=== PATIENT | female | born 1990 | race Hispanic/Latino ===

== ENCOUNTER 2024-08-15 19:27 | Emergency (ER) | payer BC, SELFPAY ==
--- NOTE | ~2024-08-15 | XR_ITS ---
EXAMINATION: XR chest 2V Exam Date/Time: 08/15/2024 20:00 VAN HELPER HISTORY: chest pressure Comparison: None. RESULT: Lines, tubes, and devices: None. Lungs and pleura: Somewhat low volumes with crowding, otherwise clear. Cardiomediastinal silhouette: Normal. Other: No acute osseous or upper abdominal finding. IMPRESSION: No acute cardiopulmonary process. Reviewed, dictated and finalized at location K. HELPER
[2024-08-15 19:33] VITALS: BP 128/78; PULSE 82; RESP 17; TEMP 36.2; O2SAT 100
--- NOTE | 2024-08-15 19:47 | ECG_ITS ---
Test Date: 2024-08-15 19:56:05 Measurements Intervals [place] Rate: 71 P: -6 WV: 133 QRS: 58 QRSD: 96 T: 40 QT: 377 QTc: 412 Interpretive Statements SINUS RHYTHM EARLY PRECORDIAL R/S TRANSITION BASELINE ARTIFACT- I, II, III, AVR BORDERLINE ECG No previous ECG available for comparison Electronically Signed On 08-16-2024 06:15:52 COSMETOLOGY TEACHER by Reed Padgett D.O.
[2024-08-15 19:59] LABS: Basophils Absolute Auto 0.1 K/mm3 (0.0-0.1); Basophils Percent Auto 0.6 % (0.2-1.2); Eosinophils Absolute Auto 0.8 K/mm3 (0-0.3); Eosinophils Percent Auto 7.3 % (0-4.4); Hemoglobin 13.7 g/dL (12.0-15.0); Immature Granulocyte Absolute 0.02 K/mm3 (0.00-0.031); Immature Granulocyte Percent A 0.2 % (0-0.5); Lymphocytes Percent Auto 30.5 % (18.3-44.2); Mean Corpuscular HGB Conc 34.3 g/dl (32-36); Mean Corpuscular Hemoglobin 31.5 pg (26-34); Mean Platelet Volume 10.6 fl (7.4-10.4); Monocytes Absolute Auto 0.6 K/mm3 (0.1-0.6); Monocytes Percent Auto 5.2 % (2.6-8.5); Neutrophils Absolute Auto 5.9 K/mm3 (1.3-6.7); Neutrophils Percent Auto 56.2 % (45.5-73.1); Platelet Count Result 306 k/mm3 (150-375); Red Blood Count 4.35 M/mm3 (4.2-5.4); Red Cell Distribution Width 12.7 % (11.5-14.5); White Blood Count 10.5 K/mm3 (4.5-10.0)
[2024-08-15 20:10] LABS: Alanine Aminotransferase 26 U/L (6-35); Albumin Level 4.7 g/dL (3.5-5.1); Alkaline Phosphatase 94 U/L (38-126); Anion Gap 8 mmol/L (4-12); Aspartate Amino Transferase 25 U/L (14-36); Bilirubin,Total 0.4 mg/dL (0.2-1.3); Blood Urea Nitrogen 12 mg/dL (7-17); Calcium 9.8 mg/dL (8.4-10.2); Carbon Dioxide 24 mmol/L (22-30); Chloride 107 mmol/L (98-107); Estimated Glomerular Filt Rate > 60; Glucose 95 mg/dL (65-110); Lipase 80 U/L (23-300); Potassium 3.9 mmol/L (3.4-5.0); Sodium 139 mmol/L (137-145)
[2024-08-15 20:15] LABS: INR 1.1; Prothrombin Time 14.1 Seconds (11.1-14.7)
[2024-08-15 20:16] LABS: Partial Thromboplastin Time 27.4 Seconds (22.3-36.8)
[2024-08-15 20:21] LABS: Troponin I < 0.012 ng/mL (0.000-0.034)
--- NOTE | 2024-08-15 22:53 | ECG_ITS ---
Test Date: 2024-08-15 22:55:09 Measurements Intervals [place] Rate: 73 P: 41 NV: 144 QRS: 62 QRSD: 87 T: 47 QT: 394 QTc: 436 Interpretive Statements SINUS RHYTHM WITH SINUS ARRHYTHMIA EARLY PRECORDIAL R/S TRANSITION MINIMAL Q WAVES- ANTEROLAT/INF LEADS BORDERLINE ECG Compared to ECG 08/15/2024 19:56:05 No significant changes Electronically Signed On 08-16-2024 06:18:33 IT INFRASTRUCTURE CONSULTANT by Reed Padgett D.O.
[2024-08-15 23:22] LABS: Troponin I < 0.012 ng/mL (0.000-0.034)
[2024-08-15 23:23] VITALS: BP 133/93; PULSE 75; PULSE 79; RESP 16; TEMP 36.7; O2SAT 100
[2024-08-15 23:24] VITALS: O2SAT 100
--- NOTE | 2024-08-16 00:22 | ED_ITS ---
HPI - General Adult General Chief complaint: Chest Pain Stated complaint: chest pressure Time Seen by Provider: 08/15/24 23:18 History of Present Illness HPI narrative: Patient 34-year-old female presents emergency department chief complaint of chest pain. Patient reports over the last several days she has had pain in her chest patient reports the pain is a pressure-like sensation the patient denies shortness of breath reports pain is worse with inspiration. The patient incidentally also reports she has had pain in her right leg for years after she had foot. Related Data Allergies Allergy/AdvReac Type Severity Reaction Status Date / Time No Known Allergies Allergy Verified 08/15/24 19:29 Review of Systems Review of Systems: A 10 system review of systems was completed on the patient and is negative except for what is stated in the HPI. Nursing and ancillary documentation was reviewed. Exam Narrative: GENERAL: Well-appearing, well-nourished, and in no acute distress. HEAD: Normocephalic, atraumatic. EYES: PERRLA and EOMI. ENT: Nares clear, no rhinorrhea or epistaxis. Mucous membranes moist. NECK: Supple. CHEST: Clear to auscultation. No respiratory distress. Chest wall is tender to palpation on the right sternal border HEART: Regular rate and rhythm. No murmur heard. Normal peripheral pulses. ABDOMEN: Soft, nontender, nondistended, normal active bowel sounds. EXTREMITIES: Normal range of motion. No edema. SKIN: Warm, dry, no rash. NEURO: No focal deficits. Alert and oriented x3. PSYCH: Normal mood and affect. Course Vital Signs Vital signs: Vital Signs Temperature 36.2 C L 08/15/24 19:33 Pulse Rate 82 08/15/24 19:33 Respiratory Rate 17 08/15/24 19:33 Blood Pressure 128/78 08/15/24 19:33 Pulse Oximetry 100 08/15/24 19:33 Temperature 36.7 C 08/15/24 23:23 Pulse Rate 75 08/15/24 23:23 Respiratory Rate 16 08/15/24 23:23 Blood Pressure 133/93 H 08/15/24 23:23 Pulse Oximetry 100 08/15/24 23:24 Oxygen Delivery Room Air 08/15/24 23:24 Medical Decision Making [facility] [place] Narrative Medical decision making narrative: Differential diagnosis includes ACS, chest wall pain, DVT The patient is not showing signs of pulmonary embolism at this time Chest wall is tender to palpation EKG showed no acute ischemic changes 0 hour 3 hour troponin were negative Vital Signs Vital Signs: Vital Signs Temperature 36.2 C L 08/15/24 19:33 Pulse Rate 82 08/15/24 19:33 Respiratory Rate 17 08/15/24 19:33 Blood Pressure 128/78 08/15/24 19:33 Pulse Oximetry 100 08/15/24 19:33 Temperature 36.7 C 08/15/24 23:23 Pulse Rate 75 08/15/24 23:23 Respiratory Rate 16 08/15/24 23:23 Blood Pressure 133/93 H 08/15/24 23:23 Pulse Oximetry 100 08/15/24 23:24 Oxygen Delivery Room Air 08/15/24 23:24 Lab Data 08/15/24 19:49 08/15/24 19:49 Labs: Lab Results 08/15/24 08/15/24 Range/Units 19:49 22:50 WBC 10.5 H (4.5-10.0) K/mm3 RBC 4.35 (4.2-5.4) M/mm3 Hgb 13.7 (12.0-15.0) g/dL Hct 40.0 (37.0-47.0) % MCV 92.0 (80-100) fl MCH 31.5 (26-34) pg MCHC 34.3 (32-36) g/dl RDW 12.7 (11.5-14.5) % Plt Count 306 (150-375) k/mm3 MPV 10.6 H (7.4-10.4) fl Immature Gran % (Auto) 0.2 (0-0.5) % Neut % (Auto) 56.2 (45.5-73.1) % Lymph % (Auto) 30.5 (18.3-44.2) % [place] % (Auto) 5.2 (2.6-8.5) % Eos % (Auto) 7.3 H (0-4.4) % Baso % (Auto) 0.6 (0.2-1.2) % Lymph # (Auto) 3.20 (0.9-3.2) K/mm3 [place] # (Auto) 0.6 (0.1-0.6) K/mm3 Eos # (Auto) 0.8 H (0-0.3) K/mm3 Baso # (Auto) 0.1 (0.0-0.1) K/mm3 Abs Immat Gran (auto) 0.02 (0.00-0.031) K/mm3 Absolute Neuts (auto) 5.9 (1.3-6.7) K/mm3 Absolute Nucleated RBC 0.000 (0.0-0.012) K/mm3 Nucleated RBC % 0.0 (0.0-0.2) % PT 14.1 (11.1-14.7) Seconds INR 1.1 APTT 27.4 (22.3-36.8) Seconds Sodium 139 (137-145) mmol/L Potassium 3.9 (3.4-5.0) mmol/L Chloride 107 (98-107) mmol/L Carbon Dioxide 24 (22-30) mmol/L Anion Gap 8 (4-12) mmol/L BUN 12 (7-17) mg/dL Creatinine 0.70 (0.7-1.0) mg/dL Estim Creat Clear Calc Not Reportable Estimated GFR > 60 (59 - ) Glucose 95 (65-110) mg/dL Calcium 9.8 (8.4-10.2) mg/dL Total Bilirubin 0.4 (0.2-1.3) mg/dL AST 25 (14-36) U/L ALT 26 (6-35) U/L Alkaline Phosphatase 94 (38-126) U/L Troponin I < 0.012 < 0.012 (0.000-0.034) ng/mL Total Protein 8.0 (6.3-8.2) g/dL Albumin 4.7 (3.5-5.1) g/dL Lipase 80 (23-300) U/L Discharge Plan Discharge Clinical Impression: Anterior chest wall pain, Right leg pain Patient Disposition: Home, Self-Care Condition: Stable Instructions: Antibiotic Form, Chest Wall Pain (ED), Leg Pain (ED) Additional Instructions: Regrese al departamento de radiolog?a por la ma?sebastián al 645 para ray amena de ultrasonido para park pier[place] derecha a las 7:00 a. m. Patient Language: Estonian Prescriptions: New ibuprofen 800 mg tablet 800 mg PO TID PRN (Reason: pain) Qty: 30 0RF Follow-up/Referrals: PHYSICIAN,HYDRAULIC ROCKBREAKER OPERATOR [Primary Care Provider] - Destiny Boland DO [Physician] - Time of Disposition: 00:27
== END 2024-08-16 01:12 | disposition home or self-care (01) ==
PROVIDERS: Emergency Provider Emergency Medicine
DX: R07.89 Other chest pain (principal); M79.604 Pain in right leg; R94.31 Abnormal electrocardiogram [ECG] [EKG]
CPT/HCPCS: 36415; 71046; 80053; 83690; 84484; 85025; 85610; 85730; 93005; 99284

== ENCOUNTER 2024-10-20 11:06 | Emergency (ER) | payer BC, SELFPAY ==
--- NOTE | ~2024-10-20 | XR_ITS ---
EXAMINATION: XR chest 2V 10/20/2024 11:34 INDICATION: Left-sided chest pain PROCEDURE: 2 view chest COMPARISON: 08/15/2024 FINDINGS: The lungs are clear. The cardiomediastinal silhouette is within normal limits. There are no pleural effusions. There is no pneumothorax suspected. IMPRESSION: 1: NO ACUTE CARDIOPULMONARY DISEASE. Reviewed, dictated and finalized at location A. R GLASS WORKER
--- NOTE | 2024-10-20 11:09 | ECG_ITS ---
Test Date: 2024-10-20 11:12:23 Measurements Intervals [place] Rate: 77 P: -5 NH: 125 QRS: 59 QRSD: 90 T: 30 QT: 378 QTc: 429 Interpretive Statements SINUS RHYTHM Compared to ECG 08/15/2024 22:55:09 Sinus arrhythmia no longer present Electronically Signed On 10-20-2024 14:39:30 RUBBER MILL OPERATOR by Cathy Melvin M.D.
--- OUTSIDE RECORDS SUMMARY | 2024-10-20 11:09 | XMS_ITS | Clinical Summary ---
Author Organization [facility] Address [address] [place] [address] Care Team Providers Care Marketing Research Analyst Name Role Phone Unknown, Notinfile Primary Care Provider Unavail able Unknown, Notinfile Unavailable Unavailable Unknown, Notinfile Unavailable Unavailable Charity Shaikh MD Unavailable Allergies No known active allergies Medications acetaminophen 500 mg capsule Take 2 capsules (1,000 mg total) by mouth every 6 (six) hours as needed for pain 60 tablet 09/09/2023 Active ibuprofen (ADVIL,MOTRIN) 600 mg tabletIndicatio ns:Cramps Take 1 tablet (600 mg total) by mouth every 6 (six) hours as needed for pain 30 tablet 09/09/2023 Active polyethylene glycol (MIRALAX) 17 gram/dose bulk powderIndicatio ns:constipation Take 17 g by mouth daily 289 g 09/09/2023 Active Active Problems Problem Noted Date Diagnosed Date care following vaginal delivery 09/08 Overview (09/09/2023): # ID: Afebrile. No signs/symptoms of infection. #History of UTI: resolved s/p Macrobid # Heme: Admit Hgb 12.5. EBL 150 mL. Hemodynamically stable. # CV/Pulm: Vital signs stable, within normal limits. 2 MR <4 hrs apart, not meeting criteria for gHTN. # GI/: Tolerating PO. Voiding spontaneously. # Pain: Controlled with above regimen. # MOC: Desires nexplanon placement (ordered). # MOF: . Urine drug screen not indicated. Patient informed of results: N/A. # Post DVT prophylaxis: The patient has the following MAJOR risk factors none and the following MINOR risk factors BMI 30-39 and parity >/=3. enoxaparin 40 mg daily ordered for VTE prophylaxis. # Disposition: Follow up task not sent. Desires discharge home this evening. Vaginal delivery 05/01/2020 Overview (05/02/2020): # ID: Afebrile. No signs/symptoms of infection. #COVID-19: Admission test pending # Heme: EBL 150 mL. No symptoms acute blood loss anemia. # CV/Pulm: Gestational hypertension - Blood pressures normotensive to mild range controlled on no meds. Asymptomatic, denies BUCHANAN/RUQ pain/vision changes. CBC/CMP wnl, UPC not sent (patient ). Patient does not meet criteria for remote BP monitoring. # GI/: Tolerating PO. Voiding spontaneously. # Pain: Controlled with above regimen. # Post DVT prophylaxis: The patient has the following MAJOR risk factors none and the following MINOR risk factors none. SCDs ordered for VTE prophylaxis. # MOC: Depo-provera # MOF: Both formula and # Disposition: Desires discharge home today of unknown anatomic location 9 Overview (10/07/2018): [phone] Home Yes [] PUL Card Given Working Diagnosis: Ectopic, s/p MTX on 10/01 Date presented: 10/01/18 Brief HPI: 28 y.o. with LMP 07/28/18 (unsure) at unknown gestational age, seen at [facility] where US was unable to visualize an IUP and was advised to come to ED for evaluation Ultrasound: UT: 6.22 cm x 4.3 cm x 6.28 cm. Intrauterine gestational sac seen: no Gestational sac summary: Visualized within left adnexa (See below) Left adnexa: Ovary visualized: 2.67cm x 2.44cm x 2.3cm. Left Ectopic visualized measuring 1.68 x 1.46 x 1.83 cm; no fetus or cardiac activity. There is also a simple appearing cyst measuring 3.8 cm. Right adnexa: Ovary visualized: 2.34cm x 0.85cm x 2.74cm. No masses seen Fluid in Cul-de-sac: none Rh Status: O Positive [] Rhogam Given Beta Trend: Lab Results Component Value Date HCG 2,629.6 (H) 10/01/201810/03: called pt to remind her to have Bhcg drawn at [facility] on 10/04. Pt agreeable. 10/07: called pt to follow up after her [facility] apts. Pt confirmed she went to apts 10/04 and 10/07. Per pt, has apt 10/11. [facility] has assumed care. PLAN Next beta due: Will obtain D#4 beta quant on 10/04/18 and D#7 on 10/07/18 - to be done at [facility] Contraception: Undecided. Patient to discuss with [facility] OBGYN. Pt compliant with MTX follow up. [facility] has assumed care and following. Pt doing well. Meets criteria for discharge from . [x] Signed out with attending and okay to remove from beta book. Attending Name: Dr. Catarino MD Immunizations Name Administration Dates Next Due Influenza, Quadrivalent, Spl it, Preservative Free, Intramuscular 09/13/2019 MMR 09/09/2023(Deferred: No longer n eeded) Varicella 09/09/2023(Deferred: No longer n eeded) Social History Tobacco Use Types Packs/Day Years Used Date Smoking Tobacco: Never Smokeless Tobacco: Never Alcohol Use Standard Drinks/Week Comments Not Currently 0 (1 standard drink = 0.6 oz pur e alcohol) Social Connection and Isolation Panel [NHANES] A nswer Date Recorded In a typical week, how many times do you talk on the phone with family, friends, or neighbors? Twice a week 09/09/20 How often do you get togethe r with friends or relatives? Once a week 09/09/2023 How often do you attend chur or orthodoxy services? 1 to 4 times per year 09/09/2023 Do you belong to any clubs o r organizations such as religion groups, unions, fraternal or athletic groups, or school groups? No 09/09/2023 How often do you attend meet ings of the clubs or organizations you belong to? Never 09/09/2023 Are you , , di vorced, , never , or living with a partner? Living with partner 09/09/2023 AUDIT-C Answer Date Recorded Q1: How often do you have a drink containing alc ohol? Never 07/03/2021 Average Number of Drinks Not on file 021 Frequency of Binge Drinking Not on file 06/20 Overall Financial Resource Strain (CARDIA) Answe r Date Recorded How hard is it for you to pa y for the very basics like food, housing, medical care, and heating? Somewhat hard 09/09/2023 Hunger Vital Sign Answer Date Recorded Within the past 12 months, y ou worried that your food would run out before you got the money to buy more. Sometimes true Within the past 12 months, t he food you bought just didn't last and you didn't have money to get more. Sometimes true PRAPARE - Transportation Answer Date Re corded In the past 12 months, has l ack of transportation kept you from medical appointments or from getting medications? No 08/21 In the past 12 months, has l ack of transportation kept you from meetings, work, or from getting things needed for daily living? No 09/09/2023 Housing Stability Vital Sign Answer Rick e Recorded In the last 12 months, was t here a time when you were not able to pay the mortgage or rent on time? No 09/09/2023 In the last 12 months, how many places have you lived? 0 09/09/2023 In the last 12 months, was t here a time when you did not have a steady place to sleep or slept in a senior care (including now)? No 09/09/2023 Personal Safety Answer Date Recorded Have you ever been in or are you currently in a harmful physical or emotional relationship or is someone making you feel afraid or unsafe? Denies 09/07/2023 Comments No Sex and Gender Information Value Date Recorded Sex Assigned at Not on file Legal Sex Female 2:29 PM INVOICE CLERK Gender Identity Not on file Sexual Orientation Not on file Obstetrics History Para Term AB IAB SAB Ectopic Multiple Livin g Live Births 5 4 4 0 1 0 0 1 0 4 4 Date Outcome GA Total Labor Labor/2nd/3rd Weight Sex Type Anes PTL Bridget A1 A5 Name Clin 1 Term Vag-Sp ont Y Livin g 6 Term F Vag-Sp ont N Livin g 2018 Ectopic ECTOPI C 2019 Term 38w 5d 0h 10m 0h 06m/0h 04m 2.555 kg (5 lb 10.1 oz) M Vag-Sp ont Epidur al N Livin g 8 9 [facility] AMEZQUITA, Shalini Ayala MD Complications:None Delivery Location:[facility] Main C amp[facility] ([facility]) 2022 Term 39w 5d 0h 17m 0h 10m/0h 07m 3.25 kg (7 lb 2.6 oz) M Vagina l Epidur al N Livin g 9 9 [facility] o [facility] [place] OBanneri Ying Jang MD Complications:None Delivery Location:[facility] Main C ampus ([facility]) Comments 09/2018 ectopic treated with methotrexate G3: MTX treatment Last Filed Vital Signs Vital Sign Reading Time Taken Comments Blood Pressure 120/54 09/09/2023 8:50 AM INVOICE CLERK Pulse 84 09/09/2023 8:50 AM INVOICE CLERK Temperature 36.6 ??C (97.9 ??F) 09/09/2023 8:50 AM CS T Respiratory Rate 18 09/09/2023 8:50 AM INVOICE CLERK Oxygen Saturation 97% 09/09/2023 8:50 AM INVOICE CLERK Inhaled Oxygen Concentration - - Weight 84.4 kg (186 lb) 09/07/2023 11:03 PM INVOICE CLERK Height 152.4 cm (5') 09/08/2023 6:26 AM INVOICE CLERK Body Mass Index 36.33 09/07/2023 11:03 PM INVOICE CLERK Plan of Treatment Health Maintenance Due Date Last Done Comments Cervical Cancer Screening 1992 Depression Screening 1992 Varicella Vaccines (1 of 2 - 13+ 2-dose series) 01/02/2005 Hepatitis B Screening 01/02/2010 Regular Well Visit/Exam 18-64 01/02/2010 HPV Vaccines (2 - 3-dose series) 01/23/2019 12/26/2018 Influenza Vaccine (#1) 2024 3, 08/07/2020, 09/13/2019 DTaP/Tdap/Td Vaccine (2 - Td or Tdap) 07/08/2033 07/08/2023 Hepatitis C Screening Completed 05/02/2020 , 10/18/2019 Pneumococcal vaccine <65 Aged Out No longer eligible based on patient's age to complete this topic Medical Devices Implanted Type Area Sales Development Consultant Device Identifier Shelf Expiration Date Model / Serial / Lot Allosource [id number] Cube Freeze Dried Irradiated Graft 30ml Bone Cancellous - [id number] - [id number] Implanted:Qty: 1 on 02/27/2021 by James Szymanski MD at [facility] Bone Allosource 08/15/2025 [id number] / [id number] / [id number] Synthes 201.776 2.4mm 4mm 26mm Self Tap Self Retain Stardrive Low Profile Cortex - [id number] Implanted:Qty: 1 on 02/27/2021 by Carlos Geronimo MD at [facility] Synthes I 201.776 / / Synthes 201.782 2.4mm 4mm 32mm Self Tap Self Retain Stardrive Low Profile Cortex - [id number] Implanted:Qty: 1 on 02/27/2021 by Carlos Geronimo MD at [facility] Synthes I 201.782 / / Synthes 243.234 Dcp 65mmx1.2mm 3 Hole Head 10 Hole Shaft Foot T Plate Bone - [id number] Implanted:Qty: 1 on 02/27/2021 by Carlos Geronimo MD at [facility] Synthes I 243.234 / / Synthes 204.830 3.5mm 6mm 30mm 2.5mm Self Tap Small Hexagonal Socket Low Profile - [id number] Implanted:Qty: 1 on 02/27/2021 by Carlos Geronimo MD at [facility] Synthes I 204.830 / / Synthes 202.828 2.7mm 5mm 28mm 2.5mm Self Tap Spherical Head Small Hexagonal - [id number] Implanted:Qty: 1 on 02/27/2021 by Carlos Geronimo MD at [facility] Synthes I 202.828 / / Synthes 202.830 2.7mm 5mm 30mm 2.5mm Self Tap Spherical Head Small Hexagonal - [id number] Implanted:Qty: 1 on 02/27/2021 by Carlos Geronimo MD at [facility] Synthes I 202.830 / / Synthes 204.828 3.5mm 6mm 28mm 2.5mm Self Tap Small Hexagonal Socket Low Profile - [id number] Implanted:Qty: 1 on 02/27/2021 by Carlos Geronimo MD at [facility] Synthes I 204.828 / / Synthes [id number] Right Calcaneal Plate Bone Stainless Steel Nonsterile - [id number] Implanted:Qty: 1 on 02/27/2021 by Carlos Geronimo MD at [facility] Synthes I [id number] / / Synthes 201.780 2.4mm 4mm 30mm Self Tap Self Retain Stardrive Low Profile Cortex - [id number] Implanted:Qty: 1 on 02/27/2021 by Carlos Geronimo MD at [facility] Synthes I 201.780 / / Explanted Type Area Sales Development Consultant Device Identifier Shelf Expiration Date Model / Serial / Lot [employer] [id number] Leeanne .45in 9in 1 [place] [employer] Wire Fixation - [id number] Explanted:Qty: 3 on 02/27/2021 at [facility] [employer] [id number] / / [employer] [id number] Leeanne .062in 9in [place] One End Orthopedic Wire - [id number] Explanted:Qty: 5 on 02/27/2021 by Carlos Geronimo MD at [facility] [employer] [id number] / / Procedures Procedure Name Priority Date/Time Associated Diagnosis Comments HEPATITIS C ANTIBODY STAT 05/02/2020 9:35 AM CDT from Last 3 Months or Most Recently Relevant to Health Maintenance Results * Hepatitis C antibody (05/02/2020 9:35 AM CDT) Hep C Ab Nonreactive Nonreactive MELANIE HOGAN Comment:Antibodies to HCV no t detected. Does NOT exclude the possibility of recent exposure to HCV. Blood specimen (specimen) 05/02/2020 9:35 AM CDT 05/02/2020 10:20 AM CDT us Notinfile Unknown LAB MICROBIOLOGY - GENERAL ORD ERABLES Edited Result - Final [facility] [place] [address] from Last 3 Months or Most Recently Relevant to Health Maintenance Insurance [facility] Advance Directives For more information, please contact: [phone] * Full Code (Latest Code Status on File) Date Activated Date Inactivated Comments 09/08/2023 8:56 AM 09/09/2023 11:04 PM * Full Code Date Activated Date Inactivated Comments 09/08/2023 2:25 AM 09/08/2023 8:56 AM Full CPR i n case of cardiopulmonary arrest * Full Code Date Activated Date Inactivated Comments 05/01/2020 8:01 AM 05/02/2020 9:22 PM * Full Code Date Activated Date Inactivated Comments 05/01/2020 12:14 AM 05/01/2020 8:01 AM Full CPR in case of cardiopulmonary arrest Care Teams Marketing Research Analyst Relationship Specialty Start Date End Date Unknown, Notinfile PCP - General 04/30/20 Unknown, Notinfile 04/30/20 Unknown, Notinfile 10/25/19 Charity Shaikh MD Referring Physician Obstetrics and Gynecology 10/25/19
--- OUTSIDE RECORDS SUMMARY | 2024-10-20 11:09 | XMS_ITS | Referral Summary ---
Author Organization [facility] Address [address] [place] [address] Care Team Providers Care Pedodontist Name Role Phone Unknown, Notinfile Primary Care Provider Unavail able Unknown, Notinfile Unavailable Unavailable Unknown, Notinfile Unavailable Unavailable Charity Shaikh MD Unavailable [phone] Allergies No known active allergies Medications acetaminophen [...] location 9 Overview (10/07/2018): Telephone Number Relationship [facility] [phone] (home) Home Yes [] PUL Card Given Working Diagnosis: Ectopic, s/p MTX on 10/01 Date presented: 10/01/18 Brief HPI: 28 y.o. with LMP 07/28/18 (unsure) at unknown gestational age, seen at [facility] where US was unable to visualize an [...] remind her to have Bhcg drawn at [facility] on 10/04. Pt agreeable. 10/07: called pt to follow up after her [facility] apts. Pt confirmed she went to apts 10/04 and 10/07. Per pt, has apt 10/11. Baltazar has assumed care. PLAN Next beta due: Will obtain D#4 beta quant on 10/04/18 and D#7 on 10/07/18 - to be done at [facility] Contraception: Undecided. Patient to discuss with [facility] OBGYN. Pt compliant with MTX follow up. [...] How often do you attend chur or baptism services? 1 to 4 times per year 09/09/2023 Do you belong to any clubs o r organizations such as orthodoxy groups, unions, fraternal or athletic groups, or [...] to sleep or slept in a senior living (including now)? No 09/09/2023 Personal Safety Answer Date Recorded Have you ever been in or are you currently in a harmful physical or emotional relationship or is someone making you feel afraid or unsafe? Denies 09/07/2023 Comments No Sex and Gender Information Value Date Recorded Sex Assigned at Not on file Legal Sex Female 2:29 PM CONTINUOUS IMPROVEMENT ANALYST Gender Identity Not on file Sexual Orientation Not on file Last Filed Vital Signs Vital Sign Reading Time Taken Comments Blood Pressure 120/54 09/09/2023 8:50 AM CONTINUOUS IMPROVEMENT ANALYST Pulse 84 09/09/2023 8:50 AM CONTINUOUS IMPROVEMENT ANALYST Temperature 36.6 ??C (97.9 ??F) 09/09/2023 8:50 AM CS T Respiratory Rate 18 09/09/2023 8:50 AM CONTINUOUS IMPROVEMENT ANALYST Oxygen Saturation 97% 09/09/2023 8:50 AM CONTINUOUS IMPROVEMENT ANALYST Inhaled Oxygen Concentration - - Weight 84.4 kg (186 lb) 09/07/2023 11:03 PM CONTINUOUS IMPROVEMENT ANALYST Height 152.4 cm (5') 09/08/2023 6:26 AM CONTINUOUS IMPROVEMENT ANALYST Body Mass Index 36.33 09/07/2023 11:03 PM CONTINUOUS IMPROVEMENT ANALYST Plan of Treatment Not on file Medical Devices Implanted Type Area Millwright Helper Device Identifier Shelf Expiration Date Model / Serial / Lot Allosource [id number] Cube Freeze Dried Irradiated Graft 30ml Bone Cancellous - [id number] - [id number] Implanted:Qty: 1 on 02/27/2021 by James Szymanski MD at [facility] Bone Allosource 08/15/2025 [id number] / [id number] / [id number] Synthes 201.776 2.4mm 4mm 26mm Self Tap Self Retain Stardrive Low Profile Cortex - [id number] Implanted:Qty: 1 on 02/27/2021 by Carlos Geronimo MD at [facility] Synthes I 201.776 / / Synthes 201.782 2.4mm 4mm 32mm Self Tap Self Retain Stardrive Low Profile Cortex - [id number] Implanted:Qty: 1 on 02/27/2021 by Carlos Geronimo MD at [facility] Synthes I 201.782 / / Synthes 243.234 Dcp 65mmx1.2mm 3 Hole Head 10 Hole Shaft Foot T Plate Bone - [id number] Implanted:Qty: 1 on 02/27/2021 by Carlos Geronimo MD at [facility] Synthes I 243.234 / / Synthes 204.830 3.5mm 6mm 30mm 2.5mm Self Tap Small Hexagonal Socket Low Profile - [id number] Implanted:Qty: 1 on 02/27/2021 by Carlos Geronimo MD at [facility] Synthes I 204.830 / / Synthes 202.828 2.7mm 5mm 28mm 2.5mm Self Tap Spherical Head Small Hexagonal - [id number] Implanted:Qty: 1 on 02/27/2021 by Carlos Geronimo MD at [facility] Synthes I 202.828 / / Synthes 202.830 2.7mm 5mm 30mm 2.5mm Self Tap Spherical Head Small Hexagonal - [id number] Implanted:Qty: 1 on 02/27/2021 by Carlos Geronimo MD at [facility] Synthes I 202.830 / / Synthes 204.828 3.5mm 6mm 28mm 2.5mm Self Tap Small Hexagonal Socket Low Profile - [id number] Implanted:Qty: 1 on 02/27/2021 by Carlos Geronimo MD at [facility] Synthes I 204.828 / / Synthes Sd241.003 Right Calcaneal Plate Bone Stainless Steel Nonsterile - [id number] Implanted:Qty: 1 on 02/27/2021 by Carlos Geronimo MD at [facility] Synthes I [id number] / / Synthes 201.780 2.4mm 4mm 30mm Self Tap Self Retain Stardrive Low Profile Cortex - [id number] Implanted:Qty: 1 on 02/27/2021 by Carlos Geronimo MD at [facility] Synthes I 201.780 / / Explanted Type Area Millwright Helper Device Identifier Shelf Expiration Date Model / Serial / Lot [employer] [id number] Leeanne .45in 9in 1 [place] Orthopedic Wire Fixation - [id number] Explanted:Qty: 3 on 02/27/2021 at [facility] [employer] [id number] / / [employer] [id number] Leeanne .062in 9in [place] One End Orthopedic Wire - [id number] Explanted:Qty: 5 on 02/27/2021 by Carlos Geronimo MD at [facility] [employer] [id number] / / Procedures Procedure Name Priority Date/Time Associated Diagnosis Comments HEPATITIS C ANTIBODY STAT 05/02/2020 9:35 AM CDT from Last 3 Months or Most Recently Relevant to Health Maintenance Results * Hepatitis C antibody (05/02/2020 9:35 AM CDT) Hep C Ab Nonreactive Nonreactive MELANIE WEEMS Comment:Antibodies to HCV no t detected. Does NOT exclude the possibility of recent exposure to HCV. Blood specimen (specimen) 05/02/2020 9:35 AM CDT 05/02/2020 10:20 AM CDT us Notinfile Unknown LAB MICROBIOLOGY - GENERAL ORD ERABLES Edited Result - Final MELANIE HOGAN [facility] Department [place] [address] from Last 3 Months or Most Recently Relevant to Health Maintenance Insurance [facility] Advance Directives For more information, please contact: [phone] * Full Code (Latest Code Status on [...] in case of cardiopulmonary arrest Care Teams Pedodontist Relationship Specialty Start Date End Date Unknown, Notinfile PCP - General 04/30/20 Unknown, Notinfile 04/30/20 Unknown, Notinfile 10/25/19 Charity Shaikh MD Referring Physician Obstetrics and Gynecology 10/25/19
--- NOTE | 2024-10-20 11:15 | ED_ITS ---
HPI - Chest Pain General Chief Complaint: Chest Pain <Mayra Groves PA-C - Last Filed: 10/21/24 14:43> Stated Complaint: chest pressure x3 weeks <Mayra Groves PA-C - Last Filed: 10/21/24 14:43> Time Seen by Provider: 10/20/24 11:15 <Mayra Grvoes PA-C - Last Filed: 10/21/24 14:43> Focused HPI: This is a 34 year old female that presents to the ER for chest pain. Ongoing over the last couple of weeks. Reports the pain feels like pressure. Worse with laying flat. Radiation to the back. Denies fever, vomiting, shortness of breath. GENERAL: Well-appearing, well-nourished, and in no acute distress. HEAD: Normocephalic, atraumatic. CHEST: Clear to auscultation. ?No respiratory distress. HEART: Regular rate and rhythm.? NEURO: ?Alert and oriented x3. Patient screened in triage and initial orders placed.? ?Additional care and disposition to be based upon?diagnostic testing and treatment. <Mayra Groves PA-C - Last Filed: 10/21/24 14:43> History of Present Illness HPI narrative: I agree with the above HPI <Nikolai Cain MD - Last Filed: 10/20/24 22:51> Related Data Allergies/Adverse Reactions: Allergies Allergy/AdvReac Type Severity Reaction Status Date / Time No Known Allergies Allergy Verified 10/20/24 11:07 <Mayra Groves PA-C - Last Filed: 10/21/24 14:43> Review of Systems 2 Review of Systems: All systems reviewed & are unremarkable except as noted in HPI and below <Nikolai Cain MD - Last Filed: 10/20/24 22:51> Exam 2 Narrative: GENERAL: Well-appearing, well-nourished, and in no acute distress. HEAD: Normocephalic, atraumatic. EYES: EOMI. CHEST: Clear to auscultation. No respiratory distress. No wheezes rales or rhonchi HEART: Regular rate and rhythm. No murmur heard. Normal peripheral pulses. EXTREMITIES: Normal range of motion. No edema. SKIN: Warm, dry, no rash. NEURO: No focal deficits. Alert and oriented x3. PSYCH: Normal mood and affect <Mayra Groves PA-C - Last Filed: 10/21/24 14:43> Course Vital Signs Vital signs: Vital Signs Temperature 97.9 F 10/20/24 12:01 Pulse Rate 71 10/20/24 12:01 Respiratory Rate 16 10/20/24 12:01 Blood Pressure 113/67 10/20/24 12:01 Pulse Oximetry 100 10/20/24 12:01 Oxygen Delivery Room Air 10/20/24 12:01 Temperature 97.9 F 10/20/24 12:01 Pulse Rate 71 10/20/24 12:01 Respiratory Rate 16 10/20/24 12:01 Blood Pressure 113/67 10/20/24 12:01 Pulse Oximetry 100 10/20/24 12:01 Oxygen Delivery Room Air 10/20/24 14:24 <Mayra Groves PA-C - Last Filed: 10/21/24 14:43> Vital Signs Temperature 97.9 F 10/20/24 12:01 Pulse Rate 71 10/20/24 12:01 Respiratory Rate 16 10/20/24 12:01 Blood Pressure 113/67 10/20/24 12:01 Pulse Oximetry 100 10/20/24 12:01 Oxygen Delivery Room Air 10/20/24 12:01 Temperature 97.9 F 10/20/24 12:01 Pulse Rate 71 10/20/24 12:01 Respiratory Rate 16 10/20/24 12:01 Blood Pressure 113/67 10/20/24 12:01 Pulse Oximetry 10/20/24 12:01 Oxygen Delivery Room Air 10/20/24 14:24 <Nikolai Cain MD - Last Filed: 10/20/24 22:51> MDM - Chest Pain MDM Narrative Medical decision making narrative: 34-year-old female presents emergency department for evaluation for left- sided chest pain that is very pleuritic in nature. Patient denies any prior history of pulmonary embolism but is on or control. Patient did have negative serial troponins and negative serial EKGs. Patient states that she is unable to stay for additional workup and is requesting to be discharged. Patient was advised that we did not rule out a pulmonary embolism and that she will need to have close follow-up with her primary care physician. Patient was also encouraged to return to the emergency department she has any worsening symptoms. <Nikolai Cain MD - Last Filed: 10/20/24 22:51> Differential Diagnosis Differential diagnosis: Likely pneumothorax, atypical chest pain, st elevation myocardial infarction, costochondritis, chest pain, biliary colic and other <Nkiolai Cain MD - Last Filed: 10/20/24 22:51> Lab Data Attestation: I reviewed the patient's lab results. <Nikolai Cain MD - Last Filed: 10/20/24 22:51> Result diagrams: 10/20/24 11:27 10/20/24 11:27 <Mayra Groves PA-C - Last Filed: 10/21/24 14:43> Labs: Lab Results 10/20/24 10/20/24 Range/Units 11:27 14:27 WBC 9.8 (4.5-10.0) K/mm3 RBC 4.73 (4.2-5.4) M/mm3 Hgb 14.7 (12.0-15.0) g/dL Hct 43.8 (37.0-47.0) % MCV 92.6 (80-100) fl MCH 31.1 (26-34) pg MCHC 33.6 (32-36) g/dl RDW 12.6 (11.5-14.5) % Plt Count 334 (150-375) k/mm3 MPV 10.7 H (7.4-10.4) fl Immature Gran % (Auto) 0.3 (0-0.5) % Neut % (Auto) 64.2 (45.5-73.1) % Lymph % (Auto) 26.8 (18.3-44.2) % [place] % (Auto) 5.1 (2.6-8.5) % Eos % (Auto) 2.8 (0-4.4) % Baso % (Auto) 0.8 (0.2-1.2) % Lymph # (Auto) 2.64 (0.9-3.2) K/mm3 [place] # (Auto) 0.5 (0.1-0.6) K/mm3 Eos # (Auto) 0.3 (0-0.3) K/mm3 Baso # (Auto) 0.1 (0.0-0.1) K/mm3 Abs Immat Gran (auto) 0.03 (0.00-0.031) K/mm3 Absolute Neuts (auto) 6.3 (1.3-6.7) K/mm3 Absolute Nucleated RBC 0.000 (0.0-0.012) K/mm3 Nucleated RBC % 0.0 (0.0-0.2) % PT 13.8 (11.1-14.7) Seconds INR 1.0 APTT 27.1 (22.3-36.8) Seconds Sodium 139 (137-145) mmol/L Potassium 4.2 (3.4-5.0) mmol/L Chloride 107 (98-107) mmol/L Carbon Dioxide 19 L (22-30) mmol/L Anion Gap 13 H (4-12) mmol/L BUN 13 (7-17) mg/dL Creatinine 0.72 (0.7-1.0) mg/dL Estim Creat Clear Calc Not Reportable Estimated GFR > 60 (59 - ) Glucose 92 (65-110) mg/dL Calcium 9.9 (8.4-10.2) mg/dL Total Bilirubin 0.6 (0.2-1.3) mg/dL AST 23 (14-36) U/L ALT 24 (6-35) U/L Alkaline Phosphatase 93 (38-126) U/L Troponin I < 0.012 < 0.012 (0.000-0.034) ng/mL Total Protein 8.0 (6.3-8.2) g/dL Albumin 4.4 (3.5-5.1) g/dL Lipase 58 (23-300) U/L <Mayra Groves PA-C - Last Filed: 10/21/24 14:43> Lab Results 10/20/24 10/20/24 Range/Units 11:27 14:27 WBC 9.8 (4.5-10.0) K/mm3 RBC 4.73 (4.2-5.4) M/mm3 Hgb 14.7 (12.0-15.0) g/dL Hct 43.8 (37.0-47.0) % MCV 92.6 (80-100) fl MCH 31.1 (26-34) pg MCHC 33.6 (32-36) g/dl RDW 12.6 (11.5-14.5) % Plt Count 334 (150-375) k/mm3 MPV 10.7 H (7.4-10.4) fl Immature Gran % (Auto) 0.3 (0-0.5) % Neut % (Auto) 64.2 (45.5-73.1) % Lymph % (Auto) 26.8 (18.3-44.2) % [place] % (Auto) 5.1 (2.6-8.5) % Eos % (Auto) 2.8 (0-4.4) % Baso % (Auto) 0.8 (0.2-1.2) % Lymph # (Auto) 2.64 (0.9-3.2) K/mm3 [place] # (Auto) 0.5 (0.1-0.6) K/mm3 Eos # (Auto) 0.3 (0-0.3) K/mm3 Baso # (Auto) 0.1 (0.0-0.1) K/mm3 Abs Immat Gran (auto) 0.03 (0.00-0.031) K/mm3 Absolute Neuts (auto) 6.3 (1.3-6.7) K/mm3 Absolute Nucleated RBC 0.000 (0.0-0.012) K/mm3 Nucleated RBC % 0.0 (0.0-0.2) % PT 13.8 (11.1-14.7) Seconds INR 1.0 APTT 27.1 (22.3-36.8) Seconds Sodium 139 (137-145) mmol/L Potassium 4.2 (3.4-5.0) mmol/L Chloride 107 (98-107) mmol/L Carbon Dioxide 19 L (22-30) mmol/L Anion Gap 13 H (4-12) mmol/L BUN 13 (7-17) mg/dL Creatinine 0.72 (0.7-1.0) mg/dL Estim Creat Clear Calc Not Reportable Estimated GFR > 60 (59 - ) Glucose 92 (65-110) mg/dL Calcium 9.9 (8.4-10.2) mg/dL Total Bilirubin 0.6 (0.2-1.3) mg/dL AST 23 (14-36) U/L ALT 24 (6-35) U/L Alkaline Phosphatase 93 (38-126) U/L Troponin I < 0.012 < 0.012 (0.000-0.034) ng/mL Total Protein 8.0 (6.3-8.2) g/dL Albumin 4.4 (3.5-5.1) g/dL Lipase 58 (23-300) U/L <Nikolai Cain MD - Last Filed: 10/20/24 22:51> Imaging Data Radiologist's impression: Impressions Chest X-Ray 10/20/24 11:34 IMPRESSION: 1: NO ACUTE CARDIOPULMONARY DISEASE. <Nikolai Cain MD - Last Filed: 10/20/24 22:51> ECG Data EKG #1: EKG Interpretation: normal rate, sinus rhythm, no ectopy, non-specific ST changes, normal QRS, normal QT and no acute changes <Nikolai Cain MD - Last Filed: 10/20/24 22:51> Critical Care Time Critical Care Time Critical Care Time: No <Mayra Groves PA-C - Last Filed: 10/21/24 14:43> Discharge Plan Discharge Clinical Impression: Chest pain, pleuritic Chest pain Qualifiers: Chest pain type: unspecified Qualified Code(s): R07.9 - Chest pain, unspecified <Mayra Groves PA-C - Last Filed: 10/21/24 14:43> Patient Disposition: Home, Self-Care <Mayra Groves PA-C - Last Filed: 10/21/24 14:43> Condition: Stable <Mayra Groves PA-C - Last Filed: 10/21/24 14:43> Instructions: Antibiotic Form, Chest Pain (ED), Pleurisy (ED) <Mayra Groves PA-C - Last Filed: 10/21/24 14:43> Additional Instructions: You left prior to completing your medical workup. Please have close follow-up with a primary care physician. Please call or return to the emergency department at any time to complete her medical workup. Particularly if you have any worsening symptoms. <Mayra Groves PA-C - Last Filed: 10/21/24 14:43> Patient Language: Tongan <Mayra Groves PA-C - Last Filed: 10/21/24 14:43> Prescriptions: No Action ibuprofen 800 mg tablet 800 mg PO TID PRN (Reason: pain) Qty: 30 0RF <Mayra Groves PA-C - Last Filed: 10/21/24 14:43> Follow-up/Referrals: PHYSICIAN,ELECTRIC MELT OPERATOR [Non-Staff] - Marko Corona MD [Physician] - <Mayra Groves PA-C - Last Filed: 10/21/24 14:43> Quality HEART score for chest pain patients History: slightly suspicious <Nikolai Cain MD - Last Filed: 10/20/24 22:51> ECG: normal <Nikolai Cain MD - Last Filed: 10/20/24 22:51> Age: < or = to 45 years <Nikolai Cain MD - Last Filed: 10/20/24 22:51> Risk factors: 1 or 2 risk factors <Nikolai Cain MD - Last Filed: 10/20/24 22:51> Troponin: < or = to 1x normal limit <Nikolai Cain MD - Last Filed: 10/20/24 22:51> Heart score: 1 <Mayra Groves PA-C - Last Filed: 10/21/24 14:43> 1 <Nikolai Cain MD - Last Filed: 10/20/24 22:51>
[2024-10-20] MEDS: ASPIRIN 81 MG CHEWABLE TABLET 324 MG PO (11:28)
[2024-10-20 11:33] LABS: Basophils Absolute Auto 0.1 K/mm3 (0.0-0.1); Basophils Percent Auto 0.8 % (0.2-1.2); Eosinophils Absolute Auto 0.3 K/mm3 (0-0.3); Eosinophils Percent Auto 2.8 % (0-4.4); Hematocrit 43.8 % (37.0-47.0); Hemoglobin 14.7 g/dL (12.0-15.0); Immature Granulocyte Absolute 0.03 K/mm3 (0.00-0.031); Immature Granulocyte Percent A 0.3 % (0-0.5); Lymphocytes Absolute Auto 2.64 K/mm3 (0.9-3.2); Lymphocytes Percent Auto 26.8 % (18.3-44.2); Mean Corpuscular HGB Conc 33.6 g/dl (32-36); Mean Corpuscular Hemoglobin 31.1 pg (26-34); Mean Corpuscular Volume 92.6 fl (80-100); Mean Platelet Volume 10.7 fl (7.4-10.4); Monocytes Absolute Auto 0.5 K/mm3 (0.1-0.6); Monocytes Percent Auto 5.1 % (2.6-8.5); Neutrophils Absolute Auto 6.3 K/mm3 (1.3-6.7); Neutrophils Percent Auto 64.2 % (45.5-73.1); Platelet Count Result 334 k/mm3 (150-375); Red Blood Count 4.73 M/mm3 (4.2-5.4); Red Cell Distribution Width 12.6 % (11.5-14.5); White Blood Count 9.8 K/mm3 (4.5-10.0)
[2024-10-20 11:44] LABS: Alanine Aminotransferase 24 U/L (6-35); Albumin Level 4.4 g/dL (3.5-5.1); Alkaline Phosphatase 93 U/L (38-126); Anion Gap 13 mmol/L (4-12); Aspartate Amino Transferase 23 U/L (14-36); Bilirubin,Total 0.6 mg/dL (0.2-1.3); Blood Urea Nitrogen 13 mg/dL (7-17); Calcium 9.9 mg/dL (8.4-10.2); Carbon Dioxide 19 mmol/L (22-30); Chloride 107 mmol/L (98-107); Estimated Glomerular Filt Rate > 60; Glucose 92 mg/dL (65-110); Lipase 58 U/L (23-300); Potassium 4.2 mmol/L (3.4-5.0); Sodium 139 mmol/L (137-145)
[2024-10-20 11:55] LABS: Troponin I < 0.012 ng/mL (0.000-0.034)
[2024-10-20 11:57] LABS: Prothrombin Time 13.8 Seconds (11.1-14.7)
[2024-10-20 11:58] LABS: Partial Thromboplastin Time 27.1 Seconds (22.3-36.8)
[2024-10-20 12:01] VITALS: BP 113/67; PULSE 71; RESP 16; TEMP 36.6; O2SAT 100
--- NOTE | 2024-10-20 14:16 | ECG_ITS ---
Test Date: 2024-10-20 14:21:36 Measurements Intervals [place] Rate: 70 P: -6 PA: 136 QRS: 56 QRSD: 92 T: 31 QT: 395 QTc: 427 Interpretive Statements SINUS RHYTHM Compared to ECG 10/20/2024 11:12:23 No significant changes Electronically Signed On 10-20-2024 14:49:25 BLUEPRINT READER by Cathy Melvin M.D.
[2024-10-20 15:04] LABS: Troponin I < 0.012 ng/mL (0.000-0.034)
== END 2024-10-20 17:06 | disposition home or self-care (01) ==
PROVIDERS: Emergency Medicine; Emergency Provider Emergency Medicine
DX: R07.81 Pleurodynia (principal)
CPT/HCPCS: 36415; 71046; 80053; 83690; 84484; 85025; 85610; 85730; 93005; 99284; A9270

== ENCOUNTER 2025-05-11 20:15 | Emergency (ER) | payer MEDICAID, SELFPAY ==
--- OUTSIDE RECORDS SUMMARY | 2025-05-11 20:18 | XMS_ITS | Clinical Summary ---
Author Organization [facility] Address [address] [place] [address] Care Team Providers Care Sulfuric Acid Plant Supervisor Name Role Phone Unknown, Notinfile Primary Care [...] location 9 Overview (10/07/2018): [facility] [phone] (home) Home Yes [] PUL Card Given Working Diagnosis: Ectopic, s/p MTX on 10/01 Date presented: 10/01/18 Brief HPI: 28 y.o. with LMP 07/28/18 (unsure) at unknown gestational age, seen at [facility] where US was unable to visualize [...] remind her to have Bhcg drawn at [facility] on 10/04. Pt agreeable. 10/07: called pt to follow up after her [facility] apts. Pt confirmed she went to apts 10/04 and 10/07. Per pt, has apt 10/11. Baltazar has assumed care. PLAN Next beta due: Will obtain D#4 beta quant on 10/04/18 and D#7 on 10/07/18 - to be done at [facility] Contraception: Undecided. Patient to discuss with [facility] OBGYN. Pt compliant with MTX follow up. Baltazar has assumed care and following. Pt doing well. Meets criteria for discharge from . [x] Signed out with attending and okay to remove from beta book. Attending Name: Dr. Catarino MD Immunizations Immunization Administration Dates Next Due Influenza, Quadrivalent, Spl it, Preservative Free, Intramuscular 09/13/2019 MMR 09/09/2023(Deferred: No longer n eeded) Varicella 09/09/2023(Deferred: No longer n eeded) Social History Tobacco Use Types Packs/Day Years Used Date Smoking Tobacco: Never Smokeless Tobacco: Never Alcohol Use Standard Drinks/Week Comments Not Currently 0 (1 standard drink = 0.6 oz pur e alcohol) Social Connection and Isolation Panel Answer Date Recorded In a typical week, how many times do you talk on the phone with family, friends, or neighbors? Twice a week 09/09/20 How often do you get togethe r with friends or relatives? Once a week 09/09/2023 How often do you attend chur or yazidism services? 1 to 4 times per year 09/09/2023 Do you belong to any clubs o r organizations such as buddhism groups, unions, fraternal or athletic groups, or [...] Average Number of Drinks Not on file Frequency of Binge Drinking Not on file [...] place to sleep or slept in a correction (including now)? No 09/09/2023 Personal Safety Answer Date Recorded Have you ever been in or are you currently in a harmful physical or emotional relationship or is someone making you feel afraid or unsafe? Denies 09/07/2023 Comments No Sex and Gender Information Value Date Recorded Sex Assigned at Not on file Legal Sex Female 2:29 PM RESERVOIR ENGINEERING CONSULTANT Gender Identity Not on file Sexual Orientation [...] Epidur al N Livin g 8 9 [facility] Jessi ca Ashle y, MD Complications:None Delivery Location:[facility] Main C ampus ([facility] 58LD) 2022 Term 39w 5d 0h 17m 0h 10m/0h 07m 3.25 kg (7 lb 2.6 oz) M Vagina l Epidur al N Livin g 9 9 [facility] to [facility] Ying Jang MD Complications:None Delivery Location:[facility] Main C ampus ([facility] 58LD) Comments 09/2018 ectopic treated with methotrexate G3: MTX treatment Last Filed Vital Signs Vital Sign Reading Time Taken Comments Blood Pressure 120/54 09/09/2023 8:50 AM RESERVOIR ENGINEERING CONSULTANT Pulse 84 09/09/2023 8:50 AM RESERVOIR ENGINEERING CONSULTANT Temperature 36.6 C (97.9 F) 09/09/2023 8:50 AM RESERVOIR ENGINEERING CONSULTANT Respiratory Rate 18 09/09/2023 8:50 AM RESERVOIR ENGINEERING CONSULTANT Oxygen Saturation 97% 09/09/2023 8:50 AM RESERVOIR ENGINEERING CONSULTANT Inhaled Oxygen Concentration - - Weight 84.4 kg (186 lb) 09/07/2023 11:03 PM RESERVOIR ENGINEERING CONSULTANT Height 152.4 cm (5') 09/08/2023 6:26 AM RESERVOIR ENGINEERING CONSULTANT Body Mass Index 36.33 09/07/2023 11:03 PM RESERVOIR ENGINEERING CONSULTANT Plan of Treatment Health Maintenance Due Date Last Done Comments Cervical Cancer Screening 1992 Depression Screening 1992 Varicella Vaccines (1 of 2 - 13+ 2-dose series) 01/02/2005 Hepatitis B Screening 01/02/2010 Regular Well Visit/Exam 18-64 01/02/2010 HPV Vaccines (2 - 3-dose series) 01/23/2019 12/26/2018 Influenza Vaccine (#1) 2025 3, 08/07/2020, 09/13/2019 DTaP/Tdap/Td Vaccine (2 - Td or Tdap) 07/08/2033 07/08/2023 Hepatitis C Screening Completed 05/02/2020 , 10/18/2019 Pneumococcal vaccine <65 Aged Out No longer eligible based on patient's age to complete this topic Medical Devices Implanted Type Area Tax Appraiser Device Identifier Shelf Expiration Date Model / Serial / Lot Allosource [id number] Cube Freeze Dried Irradiated Graft 30ml Bone Cancellous - [id number] - [id number] Implanted:Qty: 1 on 02/27/2021 by James Szymanski MD at [facility] Bone Allosource 08/15/2025 [id number] / [id number] / [id number] Synthes 201.776 2.4mm 4mm 26mm Self Tap Self Retain Stardrive Low Profile Cortex - [id number] Implanted:Qty: 1 on 02/27/2021 by Carlos Geronimo MD at [facility] Synthes I 201.776 / / Synthes 201.782 2.4mm 4mm 32mm Self Tap Self Retain Stardrive Low Profile Cortex - [id number] Implanted:Qty: 1 on 02/27/2021 by Carlos Geronimo MD at [facility] Synthes I 201.782 / / Synthes 243.234 Dcp 65mmx1.2mm 3 Hole Head 10 Hole Shaft Foot T Plate Bone - [id number] Implanted:Qty: 1 on 02/27/2021 by Carlos Geronimo MD at [facility] Synthes I 243.234 / / Synthes 204.830 3.5mm 6mm 30mm 2.5mm Self Tap Small Hexagonal Socket Low Profile - [id number] Implanted:Qty: 1 on 02/27/2021 by Carlos Geronimo MD at [facility] Synthes I 204.830 / / Synthes 202.828 2.7mm 5mm 28mm 2.5mm Self Tap Spherical Head Small Hexagonal - [id number] Implanted:Qty: 1 on 02/27/2021 by Carlos Geronimo MD at [facility] Synthes I 202.828 / / Synthes 202.830 2.7mm 5mm 30mm 2.5mm Self Tap Spherical Head Small Hexagonal - [id number] Implanted:Qty: 1 on 02/27/2021 by Carlos Geronimo MD at [facility] Synthes I 202.830 / / Synthes 204.828 3.5mm 6mm 28mm 2.5mm Self Tap Small Hexagonal Socket Low Profile - [id number] Implanted:Qty: 1 on 02/27/2021 by Carlos Geronimo MD at [facility] Synthes I 204.828 / / Synthes [id number] Right Calcaneal Plate Bone Stainless Steel Nonsterile - [id number] Implanted:Qty: 1 on 02/27/2021 by Carlos Geronimo MD at [facility] Synthes I SD241.003 / / Synthes 201.780 2.4mm 4mm 30mm Self Tap Self Retain Stardrive Low Profile Cortex - [id number] Implanted:Qty: 1 on 02/27/2021 by Carlos Geronimo MD at [facility] Synthes I 201.780 / / Explanted Type Area Tax Appraiser Device Identifier Shelf Expiration Date Model / Serial / Lot [employer] [id number] Leeanne .45in 9in 1 [place] Orth[employer] Wire Fixation - [id number] Explanted:Qty: 3 on 02/27/2021 at [facility] [employer] [id number] / / [employer] [id number] Leeanne .062in 9in [place] One End Orthopedic Wire - [id number] Explanted:Qty: 5 on 02/27/2021 by Carlos Geronimo MD at [facility] [employer] [id number] / / Procedures Procedure Name Priority Date/Time Associated Diagnosis Comments HEPATITIS C ANTIBODY STAT 05/02/2020 9:35 AM CDT from Last 3 Months or Most Recently Relevant to Health Maintenance Results * Hepatitis C antibody (05/02/2020 9:35 AM CDT) Hep C Ab Nonreactive Nonreactive [facility] Comment:Antibodies to HCV no t detected. Does NOT exclude the possibility of recent exposure to HCV. Blood specimen (specimen) 05/02/2020 9:35 AM CDT 05/02/2020 10:20 AM CDT us Notinfile Unknown LAB MICROBIOLOGY - GENERAL ORD ERABLES Edited Result - Final [facility] [place] [address] from Last 3 Months or Most Recently Relevant to Health Maintenance Insurance [facility] Advance Directives For more information, please contact: [phone] * Full Code (Latest Code Status on [...] in case of cardiopulmonary arrest Care Teams Sulfuric Acid Plant Supervisor Relationship Specialty Start Date End Date Unknown, Notinfile PCP - General 04/30/20 Unknown, Notinfile 04/30/20 Unknown, Notinfile 10/25/19 Charity Shaikh MD Referring Physician Obstetrics and Gynecology 10/25/19
[2025-05-11 20:40] VITALS: BP 132/70; PULSE 80; RESP 20; TEMP 36.5; O2SAT 99
--- NOTE | 2025-05-11 21:33 | ED_ITS ---
HPI - Skin/Abscess/Foreign Bdy General Chief complaint: Skin/Abscess/Foreign Body Stated complaint: rash to armpit Time Seen by Provider: 05/11/25 21:04 History of Present Illness HPI narrative: 35-year-old female presents emergency department for a rash to his bilateral axilla for the past 2 weeks. Patient states she has bumps to both of her axilla that she describes as a burning sensation. She denies redness or drainage, fever. Related Data Allergies Allergy/AdvReac Type Severity Reaction Status Date / Time No Known Allergies Allergy Verified 05/11/25 20:43 Review of Systems Review of Systems: All systems reviewed & are unremarkable except as noted in HPI and below Exam Narrative: GENERAL: Well-appearing, well-nourished, and in no acute distress. HEAD: Normocephalic, atraumatic. EYES: EOMI. ENT: Nares clear, no rhinorrhea or epistaxis. Mucous membranes moist. NECK: Supple. CHEST: Clear to auscultation. No respiratory distress. HEART: Regular rate and rhythm. No murmur heard. Normal peripheral pulses. EXTREMITIES: Normal range of motion. No edema. SKIN: Inflamed papules surrounding the hair follicles to bilateral axilla with areas of postinflammatory hyperpigmentation throughout axilla. No induration or fluctuation, no erythema or warmth NEURO: No focal deficits. Alert and oriented x3 Course Vital Signs Vital signs: Vital Signs Temperature 97.7 F 05/11/25 20:40 Pulse Rate 80 05/11/25 20:40 Respiratory Rate 20 05/11/25 20:40 Blood Pressure 132/70 05/11/25 20:40 Pulse Oximetry 99 05/11/25 20:40 Oxygen Delivery Room Air 05/11/25 20:40 Temperature 97.7 F 05/11/25 20:40 Pulse Rate 80 05/11/25 20:40 Respiratory Rate 20 05/11/25 20:40 Blood Pressure 132/70 05/11/25 20:40 Pulse Oximetry 99 05/11/25 20:40 Oxygen Delivery Room Air 05/11/25 20:40 MDM - Skin/Abscess/Foreign Bdy MDM Narrative Medical decision making narrative: 35-year-old female presents emergency department for a rash to his bilateral axilla for the past 2 weeks. Patient states the area is bumpy describes it as a burning sensation. Triage vitals are stable. Exam is notable for inflammatory papules to bilateral axilla surrounding hair follicles consistent with folliculitis. No areas of induration or fluctuation. Patient will be prescribed mupirocin and instructed to wash her axilla with benzyl peroxide. Advised follow-up with PCP and given return precautions. She is agreeable with the plan verbalized understanding. Discharged in stable condition. Discharge Plan Discharge Clinical Impression: Folliculitis Patient Disposition: Home Condition: Stable Instructions: Antibiotic Form, Folliculitis (ED) Additional Instructions: Use the antibiotics as directed. Use benzoyl peroxide wash on her axilla. Follow-up with the primary care provider. Return to the emergency department if you develop a fever, increasing pain, redness or other concerning symptoms. Patient Language: Bengali Prescriptions: New mupirocin [Centany] 2 % ointment 1 applic topical TID Qty: 22 0RF No Action ibuprofen 800 mg tablet 800 mg PO TID PRN (Reason: pain) Qty: 30 0RF Follow-up/Referrals: Lu,MAN Hatfield [Non-Staff, Family Practice] UNKNOWN,DOCTOR [Primary Care Provider]
== END 2025-05-11 22:21 | disposition home or self-care (01) ==
PROVIDERS: Emergency Provider Physician Assistant
DX: L73.9 Follicular disorder, unspecified (principal)
CPT/HCPCS: 99283

== ENCOUNTER 2025-09-17 12:48 | Emergency (ER) | payer MEDICAID, SELFPAY ==
--- OUTSIDE RECORDS SUMMARY | 2025-09-17 12:56 | XMS_ITS | Clinical Summary ---
Author Organization [facility] Address [address] [place] [address] Care Team Providers Care Cartographic Aide Name Role Phone Unknown, Notinfile Primary Care [...] location 9 Overview (10/07/2018): [facility] [phone] ([facility]) Home Yes [] PUL Card Given Working Diagnosis: Ectopic, s/p MTX on 10/01 Date presented: 10/01/18 Brief HPI: 28 y.o. with LMP 07/28/18 (unsure) at unknown gestational age, seen at [facility] where US was unable to visualize an [...] remind her to have Bhcg drawn at [facility] on 10/04. Pt agreeable. 10/07: called pt to follow up after her [facility] apts. Pt confirmed she went to apts 10/04 and 10/07. Per pt, has apt 10/11. Baltazar has assumed care. PLAN Next beta due: Will obtain D#4 beta quant on 10/04/18 and D#7 on 10/07/18 - to be done at [facility] Contraception: Undecided. Patient to discuss with [facility] OBGYN. Pt compliant with MTX follow up. [...] How often do you attend chur or spiritism services? 1 to 4 times per year 09/09/2023 Do you belong to any clubs o r organizations such as episcopalian groups, unions, fraternal or athletic groups, or [...] place to sleep or slept in a [place] [facility] [place] facility (including now)? No 09/09/2023 Personal Safety Answer Date Recorded Have you ever been in or are you currently in a harmful physical or emotional relationship or is someone making you feel afraid or unsafe? Denies 09/07/2023 Comments Unknown Sex and Gender Information Value Date Recorded Sex Assigned at Not on file Legal Sex Female 2:29 PM POULTRY INSPECTOR Gender Identity Not on file Sexual Orientation Not on file Obstetrics History Para Term AB IAB SAB Ectopic Multiple Livin g Live Births 5 4 4 0 1 0 0 1 4 4 Date Outcome GA Total Labor Labor/2nd/3rd Weight Sex Type Anes PTL Bridget A1 A5 Name Clin 1 Term Vag-Sp ont Y Livin g 6 Term F Vag-Sp ont N Livin g 2018 Ectopic ECTOPI C 2019 Term 38w 5d 0h 10m 0h 06m/0h 04m 2.555 kg (5 lb 10.1 oz) M Vag-Sp ont [facility] [address] [facility] Jessi ca Ashle y, MD Complications:None Delivery Location:[facility] Main C ampus ([facility] 58LD) 2022 Term 39w 5d 0h 17m 0h 10m/0h 07m 3.25 kg (7 lb 2.6 oz) M Vagina l Epidur al N Livin g 9 9 [facility] Complications:None Delivery Location:[facility] Main C ampus ([facility] 58LD) Comments 09/2018 ectopic treated with methotrexate G3: MTX treatment Last Filed Vital Signs Vital Sign Reading Time Taken Comments Blood Pressure 120/54 09/09/2023 8:50 AM POULTRY INSPECTOR Pulse 84 09/09/2023 8:50 AM POULTRY INSPECTOR Temperature 36.6 C (97.9 F) 09/09/2023 8:50 AM POULTRY INSPECTOR Respiratory Rate 18 09/09/2023 8:50 AM POULTRY INSPECTOR Oxygen Saturation 97% 09/09/2023 8:50 AM POULTRY INSPECTOR Inhaled Oxygen Concentration - - Weight 84.4 kg (186 lb) 09/07/2023 11:03 PM POULTRY INSPECTOR Height 152.4 cm (5') 09/08/2023 6:26 AM POULTRY INSPECTOR Body Mass Index 36.33 09/07/2023 11:03 PM POULTRY INSPECTOR Plan of Treatment Health Maintenance Due Date [...] this topic Medical Devices Implanted Type Area Fbi Special Agent Device Identifier Shelf Expiration Date Model / Serial / Lot Allosource [id number] Cube Freeze Dried Irradiated Graft 30ml Bone Cancellous - [id number] - [id number] Implanted:Qty: 1 on 02/27/2021 by James Szymanski MD at [facility] Bone Allosource 08/15/2025 [id number] / [id number] / [id number] Synthes 201.776 2.4mm 4mm 26mm Self Tap Self Retain Stardrive Low Profile Cortex - [id number] Implanted:Qty: 1 on 02/27/2021 by Carlos Geronimo MD at [facility] Synthes I 201.776 / / Synthes 201.782 2.4mm 4mm 32mm Self Tap Self Retain Stardrive Low Profile Cortex - [id number] Implanted:Qty: 1 on 02/27/2021 by Carlos Geronimo MD at [facility] Synthes I 201.782 / / Synthes 243.234 Dcp 65mmx1.2mm 3 Hole Head 10 Hole Shaft Foot T Plate Bone - [id number] Implanted:Qty: 1 on 02/27/2021 by Carlos Geronimo MD at [facility] Synthes I 243.234 / / Synthes 204.830 3.5mm 6mm 30mm 2.5mm Self Tap Small Hexagonal Socket Low Profile - [id number] Implanted:Qty: 1 on 02/27/2021 by Carlos Geronimo MD at [facility] Synthes I 204.830 / / Synthes 202.828 2.7mm 5mm 28mm 2.5mm Self Tap Spherical Head Small Hexagonal - [id number] Implanted:Qty: 1 on 02/27/2021 by Carlos Geronimo MD at [facility] Synthes I 202.828 / / Synthes 202.830 2.7mm 5mm 30mm 2.5mm Self Tap Spherical Head Small Hexagonal - [id number] Implanted:Qty: 1 on 02/27/2021 by Carlos Geronimo MD at [facility] Synthes I 202.830 / / Synthes 204.828 3.5mm 6mm 28mm 2.5mm Self Tap Small Hexagonal Socket Low Profile - [id number] Implanted:Qty: 1 on 02/27/2021 by Carlos Geronimo MD at [facility] Synthes I 204.828 / / Synthes Sd241.003 Right Calcaneal Plate Bone Stainless Steel Nonsterile - [id number] Implanted:Qty: 1 on 02/27/2021 by Carlos Geronimo MD at [facility] Synthes I SD241.003 / / Synthes 201.780 2.4mm 4mm 30mm Self Tap Self Retain Stardrive Low Profile Cortex - [id number] Implanted:Qty: 1 on 02/27/2021 by Carlos Geronimo MD at [facility] Synthes I 201.780 / / Explanted Type Area Fbi Special Agent Device Identifier Shelf Expiration Date Model / Serial / Lot [employer] [id number] Leeanne .45in 9in 1 [place] [employer] Wire Fixation - [id number] Explanted:Qty: 3 on 02/27/2021 at [facility] [employer] [id number] / / [employer] [id number] Leeanne .062in 9in [place] One End Orthopedic Wire - [id number] Explanted:Qty: 5 on 02/27/2021 by Carlos Geronimo MD at [facility] [employer] [id number] / / Procedures Procedure Name Priority Date/Time Associated Diagnosis Comments HEPATITIS C ANTIBODY STAT 05/02/2020 9:35 AM CDT from Last 3 Months or Most Recently Relevant to Health Maintenance Results * Hepatitis C antibody (05/02/2020 9:35 AM CDT) Hep C Ab Nonreactive Nonreactive [facility] Comment:Antibodies to HCV no t detected. Does NOT exclude the possibility of recent exposure to HCV. Blood specimen (specimen) 05/02/2020 9:35 AM CDT 05/02/2020 10:20 AM CDT us Notinfile Unknown LAB MICROBIOLOGY - GENERAL ORD ERABLES Edited Result - Final [facility] Department [place] [address] from Last 3 Months or Most Recently Relevant to Health Maintenance Insurance [facility] Advance Directives For more information, please contact: [phone] * Full Code (Latest Code Status on [...] in case of cardiopulmonary arrest Care Teams Cartographic Aide Relationship Specialty Start Date End Date Unknown, Notinfile PCP - General 04/30/20 Unknown, Notinfile 04/30/20 Unknown, Notinfile 10/25/19 Charity Shaikh MD Referring Physician Obstetrics and Gynecology 10/25/19
[2025-09-17 13:04] VITALS: BP 114/82; PULSE 120; RESP 18; TEMP 37.9; O2SAT 100
[2025-09-17] MEDS: IBUPROFEN 600 MG TABLET PO (13:19)
[2025-09-17 13:49] VITALS: TEMP 37.1
[2025-09-17 14:01] LABS: Influenza A QL RT-PCR Positive (Negative); Influenza B QL RT-PCR Negative (Negative); RSV RNA, RT-PCR Negative (Negative); SARS-CoV-2 RNA PCR Negative (Negative)
--- NOTE | 2025-09-17 14:12 | ED.URI ---
HPI - URI/Sore Throat General Chief Complaint: Upper Respiratory Infection Stated Complaint: Flu symptoms Time Seen by Provider: 09/17/25 14:12 Source: patient Mode of arrival: ambulatory Limitations: no limitations History of Present Illness HPI Narrative: Patient is a 35 y/o female who presents to the ED with c/o URI sx's. Patient presents with several family members who have similar sx's. Reports having sx's for the past 2 days. Reports myalgias, cough, congestion, sore throat, fevers. Has taken ibuprofen for his sx's. Denies SOB Related Data Allergies Allergy/AdvReac Type Severity Reaction Status Date / Time No Known Allergies Allergy Verified 05/11/25 20:43 Review of Systems Review of Systems: All systems reviewed & are unremarkable except as noted in HPI. All systems reviewed & are unremarkable except as noted in HPI and below Exam Narrative: GENERAL: Mildly ill-appearing, but in no acute distress. Obese with BMI of 33.4. HEAD: Normocephalic, atraumatic. RESPIRATORY: Airway patent, respirations nonlabored. Clear to auscultation bilaterally, no rales, rhonchi, wheezing. CARDIOVASCULAR: Borderline tachycardic with regular rhythm without murmurs, rubs, or gallops. MUSCULOSKELETAL: Moves all extremities. No gross deformities. SKIN: Warm, dry, normal color. NEURO: A&O X3. Speech clear. Cranial nerves II-XII grossly intact. Steady gait. No ataxic movements. PSYCHIATRIC: Appropriate mood and affect. Normal interaction. Course Vital Signs Vital signs: Vital Signs Temperature 100.2 F H 09/17/25 13:04 Pulse Rate 120 H 09/17/25 13:04 Respiratory Rate 18 09/17/25 13:04 Blood Pressure 114/82 09/17/25 13:04 Pulse Oximetry 100 09/17/25 13:04 Oxygen Delivery Room Air 09/17/25 13:04 Temperature 98.7 F 09/17/25 14:14 Pulse Rate 106 H 09/17/25 14:14 Respiratory Rate 18 09/17/25 14:14 Blood Pressure 119/75 09/17/25 14:14 Pulse Oximetry 100 09/17/25 14:14 Oxygen Delivery Room Air 09/17/25 14:00 [facility] Narrative Medical decision making narrative: Influenza a positive. Consistent with clinical picture. Family members are positive as well. Discussed management of such. Safe for discharge home. Given return precautions. Discharged in stable condition. Differential Diagnosis Differential Diagnosis: Influenza, COVID, RSV, viral URI Medical Records I have reviewed the following patient records and this information was taken into consideration when formulating the assessment and plan.: previous labs, previous ER visits, previous hospitalizations and previous clinic visits Lab Data MDM Lab Attestation statement: I personally reviewed the patient's lab results. Labs: Lab Results 09/17/25 Range/Units 13:18 Influenza A (RT-PCR) Positive A (Negative) Influenza B (RT-PCR) Negative (Negative) RSV (RT-PCR) Negative (Negative) SARS-CoV-2 RNA (RT-PCR) Negative (Negative) Discharge Plan Discharge Clinical Impression: Influenza A Patient Disposition: Home Condition: Stable Instructions: Antibiotic Form, Influenza (ED), Cold Symptoms (ED) Additional Instructions: You were diagnosed with Influenza A today. Isolate at home as you are contagious. Stay well-hydrated at home. Recommend electrolyte rich fluids, Gatorade, Pedialyte, body armor. Utilize Tessalon Perles as needed for cough. Recommend Tylenol and Ibuprofen around the clock as needed for discomfort and/or fevers. You can take 1000mg of Tylenol and 600mg of Motrin every 6 hours. Recommend mutu-pay-rgnpgil cough and cold medicines for symptom relief: Delsym, Mucinex, DayQuil, NyQuil, Sudafed, Robitussin, TheraFlu. Follow with your primary care doctor upon resolution of symptoms. Return to the ED if you experience worsening or severe chest pain, difficulty breathing, unable to keep down food or drink, severe pain, or any other symptoms of concern. Patient Language: Japanese Prescriptions: New benzonatate 200 mg capsule 200 mg PO TID PRN (Reason: cough) Qty: 15 0RF No Action ibuprofen 800 mg tablet 800 mg PO TID PRN (Reason: pain) Qty: 30 0RF mupirocin [Centany] 2 % ointment 1 applic topical TID Qty: 22 0RF Follow-up/Referrals: PHYSICIAN,FOOD SERVICE REPRESENTATIVE [Primary Care Provider, Internal Medicine] Time of Disposition: 14:24
[2025-09-17 14:14] VITALS: BP 119/75; PULSE 106; RESP 18; TEMP 37.1; O2SAT 100
--- OUTSIDE RECORDS SUMMARY | 2025-09-17 14:34 | XMS_ITS | Clinical Summary ---
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 with LMP 07/28/18 (unsure) at unknown gestational age, seen at [facility] where US was unable to visualize [...] remind her to have Bhcg drawn at [facility] on 10/04. Pt agreeable. 10/07: called pt to follow up after her [facility] apts. Pt confirmed she went to apts 10/04 and 10/07. Per pt, has apt 10/11. Baltazar has assumed care. PLAN Next beta due: Will obtain D#4 beta quant on 10/04/18 and D#7 on 10/07/18 - to be done at [facility] Contraception: Undecided. Patient to discuss with [facility] OBGYN. Pt compliant with MTX follow up. Baltazra has assumed care and following. Pt doing [...] How often do you attend chur or mandaen services? 1 to 4 times per year 09/09/2023 Do you belong to any clubs o r organizations such as confucianist groups, unions, fraternal or athletic groups, or [...] place to sleep or slept in a prison (including now)? No 09/09/2023 Personal Safety Answer Date Recorded Have you ever been in or are you currently in a harmful physical or emotional relationship or is someone making you feel afraid or unsafe? Denies 09/07/2023 Comments Unknown Sex and Gender Information Value Date Recorded Sex Assigned at Not on file Legal Sex Female 2:29 PM CERTIFIED REHABILITATION COUNSELOR Gender Identity Not on file Sexual Orientation [...] Epidur al N [facility]in g 8 [facility] Jessi ca Ashle y, MD Complications:None Delivery Location:[facility] Main C ampus ([facility] 58LD) 2022 Term 39w 5d 0h 17m 0h 10m/0h 07m 3.25 kg (7 lb 2.6 oz) M Vagina l Epidur al N Livin g 9 9 [facility] Y[facility] Jang [facility] Complications:None Delivery Location:[facility] Main C ampus ([facility] 58LD) Comments 09/2018 ectopic treated with methotrexate G3: MTX treatment Last Filed Vital Signs Vital Sign Reading Time Taken Comments Blood Pressure 120/54 09/09/2023 8:50 AM CERTIFIED REHABILITATION COUNSELOR Pulse 84 09/09/2023 8:50 AM CERTIFIED REHABILITATION COUNSELOR Temperature 36.6 C (97.9 F) 09/09/2023 8:50 AM CERTIFIED REHABILITATION COUNSELOR Respiratory Rate 18 09/09/2023 8:50 AM CERTIFIED REHABILITATION COUNSELOR Oxygen Saturation 97% 09/09/2023 8:50 AM CERTIFIED REHABILITATION COUNSELOR Inhaled Oxygen Concentration - - Weight 84.4 kg (186 lb) 09/07/2023 11:03 PM CERTIFIED REHABILITATION COUNSELOR Height 152.4 cm (5') 09/08/2023 6:26 AM CERTIFIED REHABILITATION COUNSELOR Body Mass Index 36.33 09/07/2023 11:03 PM CERTIFIED REHABILITATION COUNSELOR Plan of Treatment Health Maintenance Due Date [...] this topic Medical Devices Implanted Type Area Director Of Residence Life Device Identifier Shelf Expiration Date Model / Serial / Lot [employer] [id number] Cube Freeze Dried Irradiated Graft 30ml Bone Cancellous - [id number] - [id number] Implanted:Qty: 1 on 02/27/2021 by James Szymanski MD at [facility] Bone [employer] 08/15/2025 [id number] / [id number] / [id number] Synthes 201.776 2.4mm 4mm 26mm Self Tap Self Retain Stardrive Low Profile Cortex - [id number] Implanted:Qty: 1 on 02/27/2021 by Carlos Geronimo MD at [facility] Synthes I 201.776 / / Synthes 201.782 2.4mm 4mm 32mm Self Tap Self Retain Stardrive Low Profile Cortex - [id number] Implanted:Qty: 1 on 02/27/2021 by Carlos Geronimo MD at [facility] Synthes I 201.782 / / Synthes 243.234 Dcp 65mmx1.2mm 3 Hole Head 10 Hole Shaft Foot T Plate Bone - [id number] Implanted:Qty: 1 on 02/27/2021 by Carlos Geronimo MD at [facility] Synthes I 243.234 / / Synthes 204.830 3.5mm 6mm 30mm 2.5mm Self Tap Small Hexagonal Socket Low Profile - [id number] Implanted:Qty: 1 on 02/27/2021 by Carlos Geronimo MD at [facility] Synthes I 204.830 / / Synthes 202.828 2.7mm 5mm 28mm 2.5mm Self Tap Spherical Head Small Hexagonal - [id number] Implanted:Qty: 1 on 02/27/2021 by Carlos Geronimo MD at [facility] Synthes I 202.828 / / Synthes 202.830 2.7mm 5mm 30mm 2.5mm Self Tap Spherical Head Small Hexagonal - [id number] Implanted:Qty: 1 on 02/27/2021 by Carlos Geronimo MD at [facility] Synthes I 202.830 / / Synthes 204.828 3.5mm 6mm 28mm 2.5mm Self Tap Small Hexagonal Socket Low Profile - [id number] Implanted:Qty: 1 on 02/27/2021 by Carlos Geronimo MD at [facility] Synthes I 204.828 / / Synthes Sd241.003 Right Calcaneal Plate Bone Stainless Steel Nonsterile - [id number] Implanted:Qty: 1 on 02/27/2021 by Carlos Geronimo MD at [facility] Synthes I [id number] / / Synthes 201.780 2.4mm 4mm 30mm Self Tap Self Retain Stardrive Low Profile Cortex - [id number] Implanted:Qty: 1 on 02/27/2021 by Carlos Geronimo MD at [facility] Synthes I 201.780 / / Explanted Type Area Director Of Residence Life Device Identifier Shelf Expiration Date Model / Serial / Lot [employer] [id number] Leeanne .45in 9in 1 [employer] Fixation - [id number] Explanted:Qty: 3 on 02/27/2021 at [facility] [employer] [id number] / / [employer] [id number] Leeanne .062in 9in [place] [employer] One End Orthopedic Wire - [id number] Explanted:Qty: 5 on 02/27/2021 by Carlos Geronimo MD at [facility] [employer] [id number] / / Procedures Procedure Name Priority Date/Time Associated Diagnosis Comments HEPATITIS C ANTIBODY STAT 05/02/2020 9:35 AM CDT from Last 3 Months or Most Recently Relevant to Health Maintenance Results * Hepatitis C antibody (05/02/2020 9:35 AM CDT) Hep C Ab Nonreactive Nonreactive [facility] Comment:Antibodies to HCV no t detected. Does NOT exclude the possibility of recent exposure to HCV. Blood specimen (specimen) 05/02/2020 9:35 AM CDT 05/02/2020 10:20 AM CDT us Notinfile Unknown LAB MICROBIOLOGY - GENERAL ORD ERABLES Edited Result - Final [facility] Department [place] [address] from Last 3 Months or Most Recently Relevant to Health Maintenance Insurance [facility] Advance Directives For more information, please contact: [phone] * Full Code (Latest Code Status on [...] in case of cardiopulmonary arrest Care Teams Market Risk Analyst Relationship Specialty Start Date End Date Unknown, Notinfile PCP - General 04/30/20 Unknown, Notinfile 04/30/20 Unknown, Notinfile 10/25/19 Charity Shaikh MD Referring Physician Obstetrics and Gynecology 10/25/19
== END 2025-09-17 14:30 | disposition home or self-care (01) ==
PROVIDERS: Emergency Medicine; Emergency Provider Physician Assistant
DX: J10.1 Influenza due to other identified influenza virus with other respiratory manifestations (principal); Z20.822 Contact with and (suspected) exposure to COVID-19
CPT/HCPCS: 87637; 99283; A9270